=== PATIENT | male | born 1935 | race Caucasian/White ===

== ENCOUNTER → 2016-11-21 | Outpatient (CLI) | payer MEDICARE, OTHER ==
[~2016-11-21] VITALS: Ht 172.7 cm; Wt 86.2 kg
[~2016-11-21] MED LIST: ASPI1TAB24 PO; CALC600T10 PO; FISH5CAP PO; GLUC750T22 PO; LECIGRA PO; MIRA3350 PO; MSM1500T PO; MULT1TAB10 PO; RANI1TAB6 PO; SIMV20TA2 PO; VITA-130 PO; VITA400C2 PO; VITATAB11 PO; ZEAX5POW PO; uroxatral PO
[2016-11-21] MEDS: NS 1,000 ML IV SCH ×2 (13:11→13:12)
--- NOTE | 2016-11-21 13:48 | ROOR ---
Patient Name: Jose Maria Phipps Procedure Date: 11/21/2016 1:30 PM Date of : 1935 Age: 81 Room: [facility] Gender: Male Note Status: Finalized Procedure: Colonoscopy to Cecum + Cold Snare Polypectomy Indications: High risk colon cancer surveillance: Personal history of colonic polyps, Last colonoscopy: 2013 Providers: José Miguel Berry MD Referring MD: VICKI MISTRY JR, MD Requesting Provider: Medicines: Monitored Anesthesia Care Complications: No immediate complications. Procedure: Pre-Anesthesia Assessment: - The heart rate, respiratory rate, oxygen saturations, blood pressure, adequacy of pulmonary ventilation, and response to care were monitored throughout the procedure. The Colonoscope was introduced through the anus and advanced to the cecum, identified by appendiceal orifice and ileocecal valve. The colonoscopy was performed without difficulty. The patient tolerated the procedure well. The quality of the bowel preparation was good. Findings: The perianal and digital rectal examinations were normal. Internal hemorrhoids were found during retroflexion. The hemorrhoids were small and Grade I (internal hemorrhoids that do not prolapse). A small polyp was found at 60 cm proximal to the anus. The polyp was sessile. The polyp was removed with a cold snare. Resection and retrieval were complete. Multiple small and large-mouthed diverticula were found in the recto-sigmoid colon, sigmoid colon and descending colon. The exam was otherwise without abnormality on direct and retroflexion views. Impression: - Internal hemorrhoids. - One small polyp at 60 cm proximal to the anus, removed with a cold snare. Resected and retrieved. - Diverticulosis in the recto-sigmoid colon, in the sigmoid colon and in the descending colon. - The examination was otherwise normal on direct and retroflexion views. - The exam was otherwise normal to the cecum. Recommendation: - Patient has a contact number available for emergencies. The signs and symptoms of potential delayed complications were discussed with the patient. Return to normal activities tomorrow. Written discharge instructions were provided to the patient. - High fiber diet. - Discharge patient to home. - Continue present medications. - Await pathology results. - Repeat colonoscopy for symptoms only. - Check Portal Online for Path Results.([email or web address] - Return to referring physician. - The findings and recommendations were discussed with the patient's family. José Miguel Berry MD José Miguel Berry MD 11/21/2016 1:47:53 PM This report has been signed electronically. Number of Addenda: 0 Note Initiated On: 11/21/2016 1:30 PM Estimated Blood Loss: Estimated blood loss: none.
[2016-11-21 14:05] VITALS: BP 119/70
== END ==
LOC: M OPP 12:27
PROVIDERS: ATTEND Internal Medicine Gastroenterology
DX: Z12.11 Encounter for screening for malignant neoplasm of colon (principal); K64.0 First degree hemorrhoids; D12.4 Benign neoplasm of descending colon; K57.30 Diverticulosis of large intestine without perforation or abscess without bleeding; I49.9 Cardiac arrhythmia, unspecified; E78.00 Pure hypercholesterolemia, unspecified; J45.909 Unspecified asthma, uncomplicated; R06.83 Snoring; N40.0 Benign prostatic hyperplasia without lower urinary tract symptoms; Z79.899 Other long term (current) drug therapy; Z79.82 Long term (current) use of aspirin; Z88.0 Allergy status to penicillin; Z88.7 Allergy status to serum and vaccine; Z91.048 Other nonmedicinal substance allergy status; Z87.891 Personal history of nicotine dependence

== ENCOUNTER → 2017-06-21 | Outpatient (CLI) | payer MEDICARE, OTHER ==
[~2017-06-21] MED LIST changes: +ASPI-161 PO; -ASPI1TAB24 PO; -CALC600T10 PO; +CALC600T31 PO; -VITA-130 PO; -VITA400C2 PO; +VITA400C7 PO; +VITA500T PO
--- NOTE | 2017-06-21 17:41 | REP ---
LUMBAR SPINE COMPLETE: 06/21/2017. Clinical history: Back pain. Findings: Five views provided with repeat coned lateral view lumbosacral junction. No prior study. AP view shows no scoliosis. Pedicles, spinous processes and vertebral body heights intact. There are marginal osteophytes throughout. There are old displaced fractures with distraction of the third and fourth transverse processes of lateral fragments. No acute transverse process fracture. Facet arthropathy at L4-5 and L5-S1. No spondylolysis or spondylolisthesis. Marked narrowing at L5-S1 disc space with less narrowing at the levels above, but all are decreased in height. Posterior osteophytes at L4-5 and L5-S1. Sacral ala and foramina along with SI joints symmetric and normal. Mild hip joint degenerative change. Impression. 1. Diffuse degenerative disc changes greatest at L5, S1 but present with disc space narrowing throughout no compression fracture. 2. 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 3. No malalignment. No destructive lesion. Vascular calcifications in the aorta and branches. Signed by Crow Jenkins MD 06/21/2017 05:55 P
--- NOTE | 2017-06-21 17:42 | REP ---
RIGHT HIP, COMPLETE: 06/21/2017; Clinical history. Right hip pain. Trauma, patient fell. Findings: AP and frog-leg view of the hip provided. Slight narrowing of the hip joint space centrally. Rim osteophyte in the femoral head and acetabular roof, small. No fracture of the femoral head neck or trochanters. No evidence of AVN. Inferior SI joint intact. Acetabulum, pubic rami visualized were grossly intact. Impression: 1. Degenerative change at the hip without visible or displaced fracture, avulsion, subluxation or other acute finding. Signed by Crow Jenkins MD 06/21/2017 05:55 P
== END ==
LOC: M WUC 15:30
PROVIDERS: ATTEND Nurse Practitioner Family
DX: M16.11 Unilateral primary osteoarthritis, right hip (principal); M51.36 Other intervertebral disc degeneration, lumbar region; M51.37 Other intervertebral disc degeneration, lumbosacral region

== ENCOUNTER → 2019-09-09 | Outpatient (CLI) | payer MEDICARE, OTHER ==
[~2019-09-09] MED LIST changes: +RANI-397 PO; -RANI1TAB6 PO; -SIMV20TA2 PO; +SIMV20TA22 PO
--- NOTE | 2019-09-10 07:27 | REP ---
Acute abdominal series series including PA chest and supine upright abdomen: PA chest: Comparison is 12/03/2005. The lung reed are clear. Cardiac size is normal. The joaquin, mediastinum, skeletal structures are unremarkable. There is no free subdiaphragmatic air. There is no interval change. Impression: Negative PA chest. Abdomen, supine upright views: There are no comparisons. The bowel gas pattern is normal. There are no calcifications. There is degenerative disc disease in the lumbar spine. Skeletal structures and soft tissues are otherwise unremarkable. Impression: Normal bowel gas pattern Electronically Signed by Kenny Simmons MD 09/09/2019 10:13 A
== END ==
LOC: M WUC 09:28
PROVIDERS: ATTEND Nurse Practitioner Adult Health
DX: R10.84 Generalized abdominal pain (principal); K21.9 Gastro-esophageal reflux disease without esophagitis

== ENCOUNTER → 2021-01-24 | Outpatient (REF) | payer OTHER ==
[~2021-01-24] MED LIST changes: +VITA-243 PO; -VITA500T PO
== END ==
LOC: M LAB REF 11:14
PROVIDERS: ATTEND Internal Medicine
DX: M10.071 Idiopathic gout, right ankle and foot (principal)

== ENCOUNTER → 2021-06-07 | Outpatient (CLI) | payer OTHER ==
--- NOTE | 2021-06-07 13:52 | REP ---
INDICATION: F/U PNEUMONIA COMPARISON: None. TECHNIQUE: Standard helical technique without intravenous contrast administration FINDINGS: There is mediastinal and hilar adenopathy with some of the enlarged lymph nodes having central calcifications. There are no pleural or pericardial effusions. The imaged upper abdomen shows multiple low-density hepatic foci most of which have water density or near water density Hounsfield unit readings. Some are too small for CT characterization. Evaluation of the osseous structures shows spinal degenerative changes with areas of fusion of the anterior longitudinal ligament. Evaluation of the lung reed shows an area of somewhat patchy and asymmetric opacity in the left upper lobe and lingula with air bronchograms. IMPRESSION: 1. Left upper lobe and lingular opacity as described above. There are no priors for comparison. The finding potentially represents subsegmental atelectasis, zone of focal fibrosis, pneumonia, or any combination there of. Consider short-term follow-up since I have no priors for comparison. 2. Mediastinal and hilar adenopathy as described above. Etiology uncertain. Calcifications within lymph nodes usually reflects chronicity, however, this needs to be correlated clinically with follow-up since I have no priors for comparison. 3. Multiple hepatic lesions as described above probable hepatic cysts, however, since are no priors comparison pre and postcontrast enhanced hepatic CT with delayed imaging is recommended. 4. Other findings as described above. <Electronically signed by Mamadou Campos > 06/07/21 [id number]
== END ==
LOC: M RAD 12:48
PROVIDERS: ATTEND Internal Medicine
DX: J18.9 Pneumonia, unspecified organism (principal); K76.89 Other specified diseases of liver

== ENCOUNTER → 2021-06-09 | Outpatient (REF) | payer OTHER | LOC: M LAB REF 11:09 | PROVIDERS: ATTEND Internal Medicine | DX: R59.0 Localized enlarged lymph nodes (principal) ==

== ENCOUNTER → 2021-06-16 | Outpatient (CLI) | payer OTHER ==
[~2021-06-16] MED LIST changes: +ISOVUE-370 76% 100ML VIAL As Ordered ONE
--- NOTE | 2021-06-16 17:52 | REP ---
INDICATION: HEPATIC LESIONS. COMPARISON: CT chest 06/07/2021 TECHNIQUE: Bolus 100 mL Isovue 370 with pre contrast, venous and delayed imaging and both coronal and sagittal reconstructions. FINDINGS: Lung bases again show lingular fibrotic, atelectatic or infiltrative change which is seen only in part compared to the study from last week no other findings in the lung bases. Heart is not enlarged there is no pericardial thickening or effusion. The liver is not enlarged. There are multiple low-density focal hepatic lesions in the right and left lobes, more on the left. CT attenuation values are consistent with cystic fluid. There is no enhancement on standard and delayed images. No solid mass evident. Liver contour is smooth. No adjacent ascites. Spleen, gallbladder, pancreas, adrenal glands and stomach were unremarkable. No hiatal hernia. There is atherosclerotic calcifications of the abdominal aorta without aneurysm. Scarring of the anterior mid to inferior right renal cortex is seen. No hydronephrosis, renal stone or other focal infarcts/atrophy. There are areas of hypodensity scattered in both cortices some which have cystic numbers others appear more solid. Small bowel loops were unremarkable the colon shows a few scattered diverticula without signs of diverticulitis. There are degenerative changes in the lumbar and lower thoracic spine with prominent marginal osteophytes and syndesmophytes. No compression fractures are seen. Visualized ribs, and upper aspect sacroiliac joints show no acute finding there are degenerative facet changes and some sclerosis at the iliac margins of the upper SI joints. IMPRESSION: 1. Confirmation on three-phase imaging of simple cysts in the liver in both lobes is corresponding to this finding on CT chest. No ascites, biliary dilatation or solid hepatic mass. 2. Lingular zone of subsegmental atelectasis, fibrosis and or infiltrate or combination there of but seen only in part compared to chest CT not much changed from last week. 3. Some scattered diverticulosis without diverticulitis, colitis stricture or mass. Small bowel loops unremarkable. Some atherosclerotic calcifications of the aorta and branches. 4. Kidneys with scarring and cortical thinning laterally and anteriorly in the interpolar lower pole region on the right. Some areas of the poor enhancement are seen that could be isodense cysts or solid lesions versus poor perfusion. Renal ultrasound may be helpful in this regard. <Electronically signed by Crow Jenkins > 06/16/21 [id number]
== END ==
LOC: M RAD 16:33
PROVIDERS: ATTEND Internal Medicine
DX: R93.2 Abnormal findings on diagnostic imaging of liver and biliary tract (principal); K76.89 Other specified diseases of liver; K57.90 Diverticulosis of intestine, part unspecified, without perforation or abscess without bleeding
CPT/HCPCS: 74170; Q9967

== ENCOUNTER → 2023-03-28 | Outpatient (REF) | payer OTHER ==
[~2023-03-28] MED LIST changes: -ISOVUE-370 76% 100ML VIAL As Ordered ONE
[2023-03-28 13:48] LABS: IRON (FE) 90 UG/DL (65-175)
[2023-03-28 13:49] LABS: PERCENT SATURATION 35.9 % (19.7-50.0); TOTAL IRON BINDING CAPACITY 251 UG/DL (250-425)
[2023-03-28 13:50] LABS: FOLATE > 24.0 NG/ML (>5.4); VITAMIN B12 LEVEL 799 PG/ML (211-911)
== END ==
LOC: M LAB REF 12:25
PROVIDERS: ATTEND Internal Medicine
DX: I82.412 Acute embolism and thrombosis of left femoral vein (principal); D64.9 Anemia, unspecified

== ENCOUNTER → 2023-07-22 | Outpatient (REF) | payer OTHER | LOC: M LAB REF 12:03 | PROVIDERS: ATTEND Internal Medicine | DX: N18.4 Chronic kidney disease, stage 4 (severe) (principal); D63.1 Anemia in chronic kidney disease ==

== ENCOUNTER → 2023-08-08 | Outpatient (REF) | payer OTHER ==
[2023-08-08 17:33] LABS: IRON (FE) 98 UG/DL (65-175); PERCENT SATURATION 42.8 % (19.7-50.0); TOTAL IRON BINDING CAPACITY 229 UG/DL (250-425)
[2023-08-08 17:35] LABS: FOLATE > 24.0 NG/ML (>5.4)
[2023-08-08 17:36] LABS: VITAMIN B12 LEVEL 600 PG/ML (211-911)
== END ==
LOC: M LAB REF 16:16
PROVIDERS: ATTEND Internal Medicine
DX: N18.4 Chronic kidney disease, stage 4 (severe) (principal); D63.1 Anemia in chronic kidney disease

== ENCOUNTER → 2023-09-20 | Outpatient (REF) | payer OTHER | LOC: M LAB REF 14:51 | PROVIDERS: ATTEND Surgery | DX: D48.5 Neoplasm of uncertain behavior of skin (principal) ==

== ENCOUNTER → 2023-09-24 | Outpatient (REF) | payer OTHER ==
[~2023-09-24] MED LIST changes: +ADVA115A INH; +ALFU10TA3 PO; -ASPI-161 PO; +ASPI-615 PO; +CALC500C16 PO; +CALC600T60 PO; +ELIQ2.5T PO; +EQL50TAB2 PO; +FINA5TAB2 PO; +GNP1000T11 PO; +KP F1200 PO; +PANT20TA6 PO; +RA V400C PO; +THERTAB52 PO; +UROX1TAB8 PO; +VITA100024 PO; +VITATAB54 PO
[2023-09-24 13:24] LABS: PERCENT SATURATION 30.2 % (19.7-50.0)
== END ==
LOC: M LAB REF 12:23
PROVIDERS: ATTEND Internal Medicine
DX: N18.9 Chronic kidney disease, unspecified (principal); D63.1 Anemia in chronic kidney disease

== ENCOUNTER → 2023-09-26 | Outpatient (REF) | payer OTHER | LOC: M LAB REF 15:11 | PROVIDERS: ATTEND Surgery | DX: L90.5 Scar conditions and fibrosis of skin (principal) ==

== ENCOUNTER 2023-10-09 07:45 | Day surgery (SDC) | payer OTHER ==
[~2023-10-09] VITALS: Ht 170.2 cm; Wt 70.3 kg
[2023-10-09] MEDS: NS 1,000 ML IV ONE (08:05)
[2023-10-09] MEDS ORDERED: propofoL 200 MG/20 ML VIAL As Ordered ONE (09:24)
[2023-10-09 09:37] VITALS: TEMP 98.1
[2023-10-09 09:54] VITALS: BP 175/81; O2SAT 100
== END 2023-10-09 10:05 | disposition home or self-care (01) ==
LOC: M OPP 07:45
PROVIDERS: ATTEND Surgery
DX: D50.9 Iron deficiency anemia, unspecified (principal); K64.0 First degree hemorrhoids; K29.50 Unspecified chronic gastritis without bleeding; K57.30 Diverticulosis of large intestine without perforation or abscess without bleeding; Z87.19 Personal history of other diseases of the digestive system; Z85.828 Personal history of other malignant neoplasm of skin; Z86.718 Personal history of other venous thrombosis and embolism; E78.00 Pure hypercholesterolemia, unspecified; J45.909 Unspecified asthma, uncomplicated; Z79.899 Other long term (current) drug therapy; Z79.01 Long term (current) use of anticoagulants; Z88.0 Allergy status to penicillin; Z88.8 Allergy status to other drugs, medicaments and biological substances; Z88.7 Allergy status to serum and vaccine; Z87.891 Personal history of nicotine dependence

== ENCOUNTER → 2023-11-15 | Outpatient (REF) | payer OTHER ==
[2023-11-15 12:52] LABS: URIC ACID 7.6 MG/DL (3.7-9.2)
[2023-11-15 12:55] LABS: PERCENT SATURATION 36.2 % (19.7-50.0); PHOSPHORUS LEVEL 3.2 MG/DL (2.4-5.1)
== END ==
LOC: M LAB REF 11:50
PROVIDERS: ATTEND Internal Medicine
DX: E11.21 Type 2 diabetes mellitus with diabetic nephropathy (principal); D63.1 Anemia in chronic kidney disease; E83.52 Hypercalcemia; N18.9 Chronic kidney disease, unspecified

== ENCOUNTER → 2023-12-12 | Outpatient (REF) | payer OTHER ==
[2023-12-12 19:13] LABS: PERCENT SATURATION 24.2 % (19.7-50.0)
== END ==
LOC: M LAB REF 17:36
PROVIDERS: ATTEND Internal Medicine Nephrology
DX: D50.9 Iron deficiency anemia, unspecified (principal)

== ENCOUNTER 2024-01-23 10:08 | Outpatient (CLI) | payer OTHER ==
[~2024-01-23] VITALS: Ht 170.2 cm; Wt 73.0 kg
[~2024-01-23 10:08] MED LIST changes: +ALBUTEROL SULFATE 2.5MG/0.5ML INH NEB SOLN INH PRN; +EPINEPHrine INJ 1 MG/ML 1ML AMP IM PRN; +NS 1,000 ML IV SCH; +diphenhydrAMINE 50MG/ML VIAL IV PRN; +methylPREDNISolone 125MG 2ML VIAL IV PRN
[2024-01-23 10:35] VITALS: BP 141/67; O2SAT 100
[2024-01-23] MEDS: IRON SUCROSE 500 MG in NS 250 ML OVER 4 HRS IV ONE (11:03)
[2024-01-23 12:00] VITALS: BP 154/70; O2SAT 100
[2024-01-23 13:00] VITALS: BP 158/70; O2SAT 100
[2024-01-23 15:05] VITALS: BP 149/69; O2SAT 98
== END 2024-01-23 15:20 ==
LOC: M INFU 10:08
PROVIDERS: ATTEND Internal Medicine Nephrology
DX: N18.9 Chronic kidney disease, unspecified (principal); D63.1 Anemia in chronic kidney disease
CPT/HCPCS: 96365; 96366; J1756

== ENCOUNTER → 2024-03-13 | Outpatient (REF) | payer OTHER ==
[~2024-03-13] MED LIST changes: -ALBUTEROL SULFATE 2.5MG/0.5ML INH NEB SOLN INH PRN; +ALFU10TA23 PO; -ALFU10TA3 PO; -EPINEPHrine INJ 1 MG/ML 1ML AMP IM PRN; -NS 1,000 ML IV SCH; -diphenhydrAMINE 50MG/ML VIAL IV PRN; -methylPREDNISolone 125MG 2ML VIAL IV PRN
[2024-03-13 18:17] LABS: PERCENT SATURATION 47.6 % (19.7-50.0)
== END ==
LOC: M LAB REF 17:08
PROVIDERS: ATTEND Internal Medicine Nephrology
DX: D50.9 Iron deficiency anemia, unspecified (principal)

== ENCOUNTER → 2024-05-27 | Outpatient (REF) | payer OTHER ==
[2024-05-27 19:07] LABS: URIC ACID 8.2 MG/DL (3.7-9.2)
== END ==
LOC: M LAB REF 16:28
PROVIDERS: ATTEND Internal Medicine
DX: E83.52 Hypercalcemia (principal)

== ENCOUNTER → 2024-06-18 | Outpatient (REF) | payer OTHER ==
[2024-06-18 18:35] LABS: PERCENT SATURATION 29.9 % (19.7-50.0)
== END ==
LOC: M LAB REF 17:16
PROVIDERS: ATTEND Internal Medicine Nephrology
DX: D50.9 Iron deficiency anemia, unspecified (principal)

== ENCOUNTER → 2025-06-21 | Outpatient (REF) | payer OTHER ==
[~2025-06-21] MED LIST changes: -EQL50TAB2 PO; -RA V400C PO; -VITA100024 PO; +VITA100051 PO; +VITA1TAB82 PO; +VITA268C PO; +VITA400T19 PO; -VITATAB54 PO
[2025-06-21 18:20] LABS: PTH INTACT 23.7 PG/ML (18.5-88.0)
== END ==
LOC: M LAB REF 17:19
PROVIDERS: ATTEND Internal Medicine
DX: N18.4 Chronic kidney disease, stage 4 (severe) (principal)